=== PATIENT | male | born 1960 | race Caucasian/White ===

== ENCOUNTER 2020-01-15 06:29 | Inpatient (IN) | payer MEDICAID ==
[~2020-01-15] VITALS: Ht 165.1 cm; Wt 84.9 kg
[~2020-01-15 06:29] MED LIST: ASPI1TAB19 PO; ATOR40TA52 PO; CARV12.544 PO; CLOP75TA41 PO; ENAL5TAB10 PO; EZET10TA22 PO; HYDR-4795 PO; LIDO5DIS21 TOP; OMEP-263 PO
[2020-01-15] MEDS ORDERED: PANTOPRAZOLE 40 MG TAB PO SCH (07:00)
[2020-01-15] MEDS ORDERED: LISINOPRIL 5 MG TAB PO SCH (07:00)
[2020-01-15] MEDS ORDERED: IOHEXOL 350 MG/ML 100ML IJ ONE ×2 (07:44→09:04)
[2020-01-15] MEDS ORDERED: LIDOCAINE 2%HCL (LOCAL ANESTH.) INJ 20ML MDV ONE (07:44)
[2020-01-15] MEDS ORDERED: ANGIOMAX 250 MG VIAL IV ONE (07:55)
[2020-01-15] MEDS ORDERED: fentaNYL CITRATE 100 MCG/2 ML VL ONE (07:55)
[2020-01-15] MEDS ORDERED: MIDAZOLAM HCL 1MG/1ML-2 ML VIAL ONE (07:56)
[2020-01-15] MEDS ORDERED: SODIUM CHL 0.9% 50 ML ONE ×2 (07:56→08:04)
[2020-01-15] MEDS ORDERED: VERAPAMIL 2.5MG/ML INJ 2ML VIAL IV ONE (08:02)
[2020-01-15] MEDS ORDERED: HEPARIN SODIUM (PORCINE) 5000 UNITS/ML 1ML VIAL ONE (08:02)
[2020-01-15] MEDS ORDERED: NITROGLYCERIN 5MG/ML 10ML VIAL IV ONE (08:04)
[2020-01-15] MEDS ORDERED: TICAGRELOR 90 MG TAB ONE (09:05)
[2020-01-15] MEDS ORDERED: ASPirin 325 MG TAB ONE (09:05)
[2020-01-15] MEDS ORDERED: NITROGLYCERIN 0.4 MG SL TAB SL PRN (09:30)
[2020-01-15] MEDS ORDERED: ACETAMINOPHEN 500 MG TAB PO PRN (09:30)
[2020-01-15] MEDS ORDERED: ONDANSETRON HCL 4 MG/2 ML VIAL IV PRN (09:30)
[2020-01-15] MEDS ORDERED: MORPHINE SULF INJ 2 MG/ML SYRINGE 1ML IV PRN (09:30)
[2020-01-15] MEDS ORDERED: LISINOPRIL 5 MG TAB PO ONE (10:45)
[2020-01-15] MEDS ORDERED: ASPirin 81 mg TAB PO ONE (10:45)
[2020-01-15] MEDS ORDERED: CARVEDILOL 12.5 MG TAB PO ONE (10:45)
[2020-01-15] MEDS ORDERED: PANTOPRAZOLE 40 MG TAB PO ONE (10:45)
[2020-01-15] MEDS: SODIUM CHLOR 0.9% PF (SALINE LOCK) 10ML VIAL/SYR IV SCH ×2 (13:40→22:27)
[2020-01-15 16:51] VITALS: BP 143/89
[2020-01-15] MEDS: HYDROcodone-ACET 5/325MG TAB PO PRN (17:44)
[2020-01-15] MEDS ORDERED: ATORVASTATIN 20 MG TAB PO SCH (18:00)
[2020-01-15 22:00] VITALS: BP 116/82
[2020-01-15] MEDS: TICAGRELOR 90 MG TAB PO SCH (22:27)
[2020-01-15] MEDS: CARVEDILOL 12.5 MG TAB PO SCH (22:28)
[2020-01-16 05:00] VITALS: BP 119/79
[2020-01-16] MEDS: SODIUM CHLOR 0.9% PF (SALINE LOCK) 10ML VIAL/SYR IV SCH (05:40)
[2020-01-16] MEDS: HYDROcodone-ACET 5/325MG TAB PO PRN (06:30)
[2020-01-16] MEDS ORDERED: LISINOPRIL 5 MG TAB PO SCH (07:00)
[2020-01-16] MEDS ORDERED: PANTOPRAZOLE 40 MG TAB PO SCH (07:00)
[2020-01-16 08:00] VITALS: BP 123/77
[2020-01-16] MEDS: TICAGRELOR 90 MG TAB PO SCH (09:42)
[2020-01-16] MEDS: CARVEDILOL 12.5 MG TAB PO SCH (09:43)
[2020-01-16 09:58] VITALS: BP 123/77
[2020-01-16] MEDS ORDERED: ASPirin 81 mg TAB PO SCH (10:00)
[2020-01-16 12:00] VITALS: BP 131/85
[2020-01-16] MEDS ORDERED: TICA90TA PO (14:33)
== END 2020-01-16 14:41 | disposition home or self-care (01) | DRG 175 ==
LOC: CATH 06:29 → WEST WING 15:14 → TELE-WESTW 17:08
PROVIDERS: ADMIT Internal Medicine Cardiovascular Disease; ATTEND Hospitalist
PROC: 027034Z Dilation of Coronary Artery, One Artery with Drug-eluting Intraluminal Device, Percutaneous Approach (ICD-10-PCS; principal; 2020-01-15)
PROC: 4A023N7 Measurement of Cardiac Sampling and Pressure, Left Heart, Percutaneous Approach (ICD-10-PCS; 2020-01-15)
PROC: B2111ZZ Fluoroscopy of Multiple Coronary Arteries using Low Osmolar Contrast (ICD-10-PCS; 2020-01-15)
PROC: B2151ZZ Fluoroscopy of Left Heart using Low Osmolar Contrast (ICD-10-PCS; 2020-01-15)
DX: T82.855A Stenosis of coronary artery stent, initial encounter (principal); E78.5 Hyperlipidemia, unspecified; I50.9 Heart failure, unspecified; Z20.828 Contact with and (suspected) exposure to other viral communicable diseases; Y83.1 Surgical operation with implant of artificial internal device as the cause of abnormal reaction of the patient, or of later complication, without mention of misadventure at the time of the procedure; I25.10 Atherosclerotic heart disease of native coronary artery without angina pectoris; I11.0 Hypertensive heart disease with heart failure; I08.1 Rheumatic disorders of both mitral and tricuspid valves; Z79.899 Other long term (current) drug therapy
CPT/HCPCS: 99152; 99153; C1874; G0378; J2250; J3490